=== PATIENT | male | born 1970 | race Caucasian/White ===

== ENCOUNTER 2021-05-03 20:45 | Emergency (ER) | payer SELFPAY ==
[2021-05-03 20:46] VITALS: BP 159/101; PULSE 99; RESP 18; TEMP 36.9; O2SAT 96; BMI 22.8
--- NOTE | 2021-05-03 20:54 | PC.NURSE ---
Pt reported to this rn you can't just give me fucking antibiotics? pt educated to triage process. then why the fuck am i here if you can't help me. pt told he must be evaluated by a provider prior to medication management is to be provided.
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
[2021-05-03] MEDS: cephALEXin 500 MG CAPSULE PO (22:16)
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
== END 2021-05-03 22:40 | disposition home or self-care (01) ==
PROVIDERS: Emergency Provider Emergency Medicine
DX: L03.116 Cellulitis of left lower limb (principal); F17.200 Nicotine dependence, unspecified, uncomplicated; Z71.6 Tobacco abuse counseling; Z79.899 Other long term (current) drug therapy
CPT/HCPCS: 99283